=== PATIENT | female | born 1985 | race Two or more races ===

== ENCOUNTER 2021-01-20 08:59 | Emergency (ER) | payer MEDICAID ==
[~2021-01-20] VITALS: Ht 157.5 cm; Wt 76.2 kg
[2021-01-20 13:31] VITALS: BP 130/77
== END 2021-01-20 13:26 | disposition home or self-care (01) ==
LOC: ER 08:59
DX: S91.202A Unspecified open wound of left great toe with damage to nail, initial encounter (principal); L08.9 Local infection of the skin and subcutaneous tissue, unspecified; Z88.5 Allergy status to narcotic agent; Z88.8 Allergy status to other drugs, medicaments and biological substances; Z91.011 Allergy to milk products; W18.40XA Slipping, tripping and stumbling without falling, unspecified, initial encounter; Y93.89 Activity, other specified; Y92.89 Other specified places as the place of occurrence of the external cause; Y99.8 Other external cause status